=== PATIENT | female | born 2000 | race Caucasian/White ===

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

== ENCOUNTER 2021-04-29 09:45 | Outpatient (RCR) | payer OTHER, SELFPAY ==
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
[2021-04-29 10:04] VITALS: BP 115/78; PULSE 68
--- NOTE | 2021-04-29 10:10 | BH.SGPN.GN ---
Behaviors/Verbalizations/Mental Status: [] Eye contact is good. Motor activity is appropriate. Appearance is disheveled. Speech is Appropriate. Mood is depressed. Affect is flat. Thoughts are linear and logical. No evidence of psychosis. Client Response/Progress/Benefit: [] Pt was an active participant in group discussion and activity. Attentive during psychoeducation. Pt participated in interactive group discussion in which group defined fixed mindset and provided insight on how a fixed mindset could impact mental health and result in; being closed to new possibilities, focusing only on how things are unfair, could lead to helplessness, could lead to feelings of not being in control, could cause one to feel like a failure, and could cause one to ignore any success. Interacted and worked well with peers in small group. Fixed mindset thoughts that were overheard during activity included; This won't work, this didn't work before, I don't think this matters, Its hard. I'm nervous, this sucks, this is impossible, I'm not good at this, we will fail. Benefited from increased awareness on the role of fixed mindset on mental health. Will continue in IOP to maintain safety, stabilize mood, and prevent decompensation. Narrative Note: []
--- NOTE | 2021-04-29 11:10 | BH.SGPN.GN ---
Behaviors/Verbalizations/Mental Status: []Client alert and oriented, casually dressed and groomed. Eye contact good. Motor activity appropriate. Speech within normal limits. Affect constricted, mood depressed. Thoughts linear, logical, no signs of hallucinations or delusions. Client Response/Progress/Benefit: []Client engaged during activity and discussion AEB remaining attentive, providing increased input, and taking notes throughout. Client worked in small group to apply skills learned to reframe own personal fixed thoughts. Appeared to benefit from suggestions provided by peers as client indicated struggling to reframe thoughts identified. Reframed personal fixed thought of ?I?ll never be happy again? with growth mindset thought of ?I can struggle and still enjoy myself at times?. Client also picked a strategy from the list of suggestions to develop a growth mindset. Benefitted from discussing benefits of growth mindset and brainstorming strategies for prompting growth-mindset. First day of IOP tx. Will continue IOP tx prevent decompensation, gain healthy coping skills to manage depression, and reduce use of unhealthy coping skills. Narrative Note: []
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
--- NOTE | 2021-04-29 13:10 | BH.DR.ITP ---
Initial Treatment Plan Patient Information Visit Information: ADMISSION DATE: EXPECTED LOS: 4-6 weeks Problems/Symptoms Problem #1:: Mood instability Symptom:: Sadness, anhedonia, passive suicidal ideation, decreased concentration, apathy, hopelessness, worthlessness, guilt Problem #2:: Anxiety Symptom:: Worry, rumination
--- NOTE | 2021-04-30 09:08 | BH.SGPN.GN ---
Behaviors/Verbalizations/Mental Status: []Client alert and oriented, casually dressed and groomed. Eye contact fair to good. Motor activity appropriate. Speech within normal limits. Affect constricted, mood anxious and depressed. Thoughts linear, logical, no signs of hallucinations or delusions. Reviewed client?s symptom tracker, denies any suicidal ideation, plan, or intent as of 04/30/21. Future oriented Client Response/Progress/Benefit: []Client responded well to session, new to IOP treatment and indicated not having much to share. Attentive throughout. Client reports feeling stale this morning which she went on to describe as being dissatisfied and empty. Noted struggling to enjoy activities she previously enjoyed and feels numb. Client did well however to identify two activities she has found to be enjoyable which included a Russian class she is taking, as well as cooking. Discussed a win she has achieved as getting classes scheduled to return to school next semester as she is currently taking the semester off. Appeared too benefit from the supportive group environment. Continued IOP tx recommended to improve application of coping and self-care skills, continue to improve mood stability, and prevent decompensation. Narrative Note: []
--- NOTE | 2021-04-30 10:10 | BH.SGPN.GN ---
Behaviors/Verbalizations/Mental Status: [] Eye contact is good. Motor activity is appropriate. Appearance is disheveled. Speech is Appropriate. Mood is depressed. Affect is flat. Thoughts are linear and logical. No evidence of psychosis. Client Response/Progress/Benefit: [] Pt was an active participant in group activity. Attentive during psychoeducation. Participated in interactive discussion on celebrities who overcame failures to decrease stigma associated with failure. Group then worked together to identify the impact of FOF which can lead to; feeling as if they are not enough, can cause apprehension about trying new things, can lead to staying in toxic and unhealthy situations, self-sabotage, keep one stuck, and prolonged suffering. Pt also participated in and provided insight on what causes or leads to FOF which included; expectations, family dynamics, the environment, status, and our view of ourself. Benefited from increased awareness of the role of FOF on mental health and decision-making. Will continue in IOP to maintain safety, increase healthy coping, and improve functioning. Narrative Note: []
--- NOTE | 2021-04-30 11:15 | BH.SGPN.GN ---
Behaviors/Verbalizations/Mental Status: []Client alert and oriented, casually dressed and groomed. Eye contact fair. Motor activity appropriate. Speech within normal limits. Affect constricted, mood depressed. Thoughts linear, logical, no signs of hallucinations or delusions. Client Response/Progress/Benefit: []Client responded well to session, engaged in the experiential activity and attentive throughout group processing. Client completed the fear of failure worksheet and reported that fear of failure has kept client from ?doing art and getting better?. Client able to identify thoughts and behaviors that reinforce personal fear of failure which included: avoidance, remembering past failures, and rigid expectations. Client attentive during discussion of the different strategies to help overcome fear of failure. Identified wanting to work on overcoming avoidance by working on a small art project. Appeared to benefit from gaining self-awareness and learning strategies to overcome fear of failure. Client will continue IOP tx to prevent decompensation, reduce the use of unhealthy coping skills, and improve overall functioning. Narrative Note: []
== END 2021-05-03 23:59 ==
LOC: BHIOP 09:45
PROVIDERS: PCP Pediatrics; Referring Provider Psychiatry & Neurology Psychiatry; Visit Provider Psychiatry & Neurology Psychiatry
DX: F31.9 Bipolar disorder, unspecified (principal); F12.90 Cannabis use, unspecified, uncomplicated; Z79.899 Other long term (current) drug therapy
CPT/HCPCS: S9480; 90853

== ENCOUNTER 2021-05-04 09:00 | Outpatient (RCR) | payer OTHER, SELFPAY ==
[2021-05-04 00:35] VITALS: BP 115/78; PULSE 68
--- NOTE | 2021-05-04 09:00 | BH.SGPN.GN ---
Behaviors/Verbalizations/Mental Status: []Eye contact is tearful. Motor activity is appropriate. Appearance is casual. Speech is appropriate. Mood is depressed. Affect is congruent. Thoughts are linear and logical. No evidence of psychosis. Reviewed daily symptom tracker sheet with no reports of suicidal ideations, plan, or intent. Client Response/Progress/Benefit: [] Client was engaged throughout group session. Client reported her emotion of the day as ?dissatisfied?, and tearfully discussed struggling with abstaining from smoking marijuana. Client appeared to benefit from group discussion normalizing feeling and suggestions provided. Client discussed attending part of a marijuana anonymous meeting, and going to work once over the weekend as mental health wins. Progress noted AEB client report taking steps to maintain abstinent from marijuana, client continues to endorse a depressing mood and poor functioning. Client will continue IOP treatment to prevent decompensation and gain healthy coping skills to improve functioning. Narrative Note: []
--- NOTE | 2021-05-04 10:10 | BH.SGPN.GN ---
Behaviors/Verbalizations/Mental Status: []Client alert and oriented, casually dressed and groomed. Eye contact good. Motor activity appropriate. Speech within normal limits. Affect constricted, mood dysthymic. Thoughts linear, logical, no signs of hallucinations or delusions. Client Response/Progress/Benefit: [] Client engaged in session AEB taking notes, contributing to discussion, and providing examples throughout. Client assisted group with identifying benefits of setting boundaries such as improved relationships, reduced anxiety, increased sense of self-respect, and feeling validated. Listened during psychoeducation on different types of boundaries. Client stated struggles with setting time boundaries for self, often distracts self and loses time. Client seemed to benefit from increased awareness of how boundaries impact mental health and the different types of boundaries there are. Will continue IOP tx to increase coping skills, challenge negative thoughts, and prevent decompensation.
--- NOTE | 2021-05-04 14:06 | BH.MDN ---
Multi-Disciplinary Note - Note 30-min Individual Time Started:: 11:25 Date: 05/04/21 Purpose of session/treatment goals addressed:: To gather information on client's current stressors, symptoms, triggers, and tx goals. Another goal was to build rapport. Eye Contact:: Good Motor Activity:: Appropriate Appearance:: Casual Speech:: Appropriate Mood:: Depressed Affect:: Congruent - tearful Thoughts:: Linear, No evidence of hallucinations/delusions noted Staff Interventions:: psychoeducation on: - marijuana use and addiction, rapport building, strengths perspective, treatment planning, goal setting Client Response:: Pt responded well to session, open to meeting with therapist. Pt updated therapist of life stressors, symptoms, and substance use since previous [facility] admission. Pt shared that as soon as she left [facility], pt started smoking marijuana heavily. Pt stated she was using a pen to smoke dabs and was doing this daily. Pt reported she did not realize it was a problem until she came home and did not have access to marijuana. Pt explained how she had a manic episode over the summer after she stopped smoking. Pt reports since then she has had another relapse, but is currently sober. Pt became tearful and shared that she has not felt stewart since quitting and she worries that she will never feel stewart again. Pt stated she is worried about returning to school because her close friends smoke and marijuana is very easily accessible. Pt shared her parents also want to drug test pt when she returns to school which I know I need, but it makes me really sad. Pt receptive to discussion of addiction and how this impacts pleasure in the brain. Pt also receptive to discussion of family sessions, should pt ever want to have one with her parents. Pt's tx goals are to learn how to cope with depression and anxiety without marijuana. Pt also wants to learn how to manage cravings and gain healthy supports. Pt has been attending Marijuana Anonymous and her goal is to ask someone to be her sponsor this week. Risks/Concerns:: Pt denied any current suicidal ideations, plan, or intent as of 05/04/21. Pt admits to passive suicidal ideations within the past month. Protective factors and parents administer pt's medications. No access to weapons. Progress Toward Goals/Plan:: Pt started IOP last week and so far pt has been responding well to treatment. Pt is quiet in the group setting, but takes notes and appears attentive. Pt currently presenting with a depressed mood, crying spells, anhedonia, lack of motivation, negative thinking patterns, and isolative behaviors. Pt is newly sober from marijuana and pt reports she has been struggling with maintaining sobriety. Pt has been having urges to smoke daily and reports she has not been experiencing stewart since she stopped smoking. Pt will continue IOP tx to prevent decompensation, gain healthy coping skills to replace smoking, and improve functioning. Time Stopped:: 12:00
--- NOTE | 2021-05-04 14:48 | BH.MTP_ITS ---
Master Treatment Plan - Patient Information Program Physician:: Dr. Fernandes Primary Therapist:: Claudette ROMO - Psychiatric Diagnoses Psychiatric Diagnoses:: Rule out Bipolar disorder, NOS (F 32.9); Rule out mood disorder with psychosis secondary to substance use; Rule out bipolar 1 disorder as diagnosed during her hospital admission in March 2021; Marijuana use disorder; History of Adderall abuse Diagnosis Code(s):: F 32.9 - Estimated LOS Estimated LOS (in weeks):: 6 Problem/Goal #1 - Problem/Goal #1 Stated Goal:: Client will decrease depressive symptoms, use of unhealthy coping skills, ahedonia, and passive wishes due to major depression disorder. Description of Barriers: Client is away from her supports at school which is a protective factor to prevent use, but also triggers depression and loneliness. Client continues to have cravings to use marijuana. Client worries about relapsing and misses smoking even though she knows there are numerous consequences. Client worries about her ability to function at school and maintain sobriety. Functional Impact: Client is a 21-year-old female with a history of MDD, cannabis use disorder, and rule out bipolar NOS. Client was referred to [facility] by her mother due to worsening mental health symptoms and recent hospitalization within the last year. Client participated in [employer] from 07/14/20-07/21/20 and when she returned back to college, client began decompensating. At admission, client presents with a depressed mood, increase sleep, lack of energy, anhedonia, apathy, and loss of appetite with a 20lbs weight loss. Client denies any current SI, but in March 2021, client was admitted due to suicidal ideations with a plan. Client had a manic episode over the summer for 7-10 days and during that time client had pressured speech, lack of sleep, flight of ideas, excessive posting online, and paranoia. Client also had symptoms of psychosis with delusions for one day, but denies any since. Client had been using marijuana heavily (dabs with 80-90% THC) daily until she moved home from school. Unsure if dayday is secondary to marijuana use. Client's symptoms are impacting her ability to function at home, at school, and socially. Goal Relevant Strengths/Supports: Client has family support, outpatient counseling, and is motivated to improve so she can return to school. - Objectives Objective #1 Stated Objective: Client will learn and utilize 2-3 healthy coping strategies to better manage depressive symptoms as shown by reduced DSM-5 scores. Interventions: Through group and individual sessions, therapist will help client identify triggers and warning signs of depression. Therapist will teach client various coping skills to manage her symptoms and give client tangible resources to use to regulate emotions. Therapist will use cognitive restructuring techniques and help client gain awareness of negative thoughts that reinforce depressive cycles and help client reframe these thoughts. Discharge Criteria: Client will have met this goal when she can report learning and using at least 2 coping skills to manage depressive symptoms and show a reduction in DSM-5 symptoms. Target Date: 06/10/21 Review Date: 05/27/21 Status: open Objective #2 Stated Objective: Client will identify 2 triggers and 2 coping skills to use when client experiences mood instability and has increased urges to engage in unhealthy coping skills. Interventions: Through individual and group counseling client will be provided with education on healthy coping skills to manage mood symptoms, impulse, and crisis behaviors. Therapist will provide information on healthy alternatives to smoking or using substances. Therapist will also engage client to use self- compassion while working to change behaviors. Discharge Criteria: Client will have accomplished this goal when client can identify at least 2 triggers and 2 coping skills to increase mood stability and reduce unhealthy coping skills. Target Date: 06/10/21 Review Date: 05/27/21 Status: open Problem/Goal #2 - Problem/Goal #2 Stated Goal:: Client will reduce anxiety symptoms while increasing ability to function on daily basis. Description of Barriers: Client is away from her supports at school which is a protective factor to prevent use, but also triggers depression and loneliness. Client continues to have cravings to use marijuana. Client worries about relapsing and misses smoking even though she knows there are numerous consequences. Client worries about her ability to function at school and maintain sobriety. Functional Impact: Client is a 21-year-old female with a history of MDD, cannabis use disorder, and rule out bipolar NOS. Client was referred to [facility] by her mother due to worsening mental health symptoms and recent hospitalization within the last year. Client participated in [employer] from 07/14/20-07/21/20 and when she returned back to college, client began decompensating. At admission, client presents with a depressed mood, increase sleep, lack of energy, anhedonia, apathy, and loss of appetite with a 20lbs weight loss. Client denies any current SI, but in March 2021, client was admitted due to suicidal ideations with a plan. Client had a manic episode over the summer for 7-10 days and during that time client had pressured speech, lack of sleep, flight of ideas, excessive posting online, and paranoia. Client also had symptoms of psychosis with del usions for one day, but denies any since. Client had been using marijuana heavily (dabs with 80-90% THC) daily until she moved home from school. Unsure if dayday is secondary to marijuana use. Client's symptoms are impacting her ability to function at home, at school, and socially. Goal Relevant Strengths/Supports: Client has family support, outpatient counseling, and is motivated to improve so she can return to school. - Objectives Objective #1 Stated Objective: Client will identify 2-3 anxiety triggers and 2 coping skills to use when feeling anxious to manage anxiety as shown by decreasing her DSM-5 scores for anxiety. Interventions: Therapist will provide education on anxiety, avoidance behaviors, and maintenance cycles. Therapist will help client explore personal symptoms and warning signs of anxiety. Therapist will teach client coping skills to improve emotional regulation, mindfulness, and distress tolerance to help client cope with anxiety in the moment. Discharge Criteria: Client will have accomplished this goal when she can identify at least 2 triggers and report using 2 coping skills to manage anxiety. Additionally, client will have accomplished this goal when her DSM-5 scores show a reduction for anxiety. Target Date: 06/10/21 Review Date: 05/27/21 Status: open Objective #2 Stated Objective: Client will identify 2-3 cognitive distortions that lead to rumination and learn 2-3 ways to manage these thoughts to better manage anxiety Interventions: Therapist will provide education on the most common cognitive distortions and teach client the connection between thoughts, emotions, and feelings. Therapist will assist client in identifying, challenging, and replacing dysfunctional thoughts with positive, more realistic thoughts. Therapist will use CBT and DBT techniques to help client gain awareness of thinking errors and learn how to more effectively handle negative thoughts. Therapist will also use self-compassion to help client set more realistic expectations for herself. Discharge Criteria: Client will have accomplished this goal when can identify at least 2 cognitive distortions and at least 2 coping skills to manage negative thoughts. Target Date: 06/10/21 Review Date: 05/27/21 Status: open
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
--- NOTE | 2021-05-07 09:05 | BH.SGPN.GN ---
Behaviors/Verbalizations/Mental Status: [] Eye contact is good. Motor activity is appropriate. Appearance is disheveled. Speech is Appropriate. Mood is depressed. Affect is flat. Thoughts are linear and logical. No evidence of psychosis. Reviewed daily check in sheet and no reports of suicidal ideations or intent. Client Response/Progress/Benefit: [] Pt participated when prompted. Attentive. Emotion for today is anxious. Shared with the group that she has limited energy and motivation. I have enough to make it to IOP and work and nothing else. Reports that when at home she isolates and watches [employer] videos feeling like that is all she is capable of. She is unsure if she will be ready to return to college in July and her parents have been been concerned. Unsure if she can manage the stressors of school. She did go on a walk and complete some other responsibilities however again feels drained and depressed. Group provided feedback and suggestions to slowly ease back into more activities. Recommended 5-10 minutes of a chore or reading. Feedback was beneficial. No progress noted. Will continue in [facility] to maintain safety, increase healthy coping, and improve functioning. Narrative Note: []
--- NOTE | 2021-05-07 10:11 | BH.SGPN.GN ---
Behaviors/Verbalizations/Mental Status: []Client alert and oriented, casually dressed and groomed. Eye contact good. Motor activity appropriate. Speech within normal limits. Affect constricted, mood depressed and anxious. Thoughts linear, logical, no signs of hallucinations or delusions. Client Response/Progress/Benefit: []Pt was a mostly passive participant in group discussion; however, did well in taking notes and providing some limited input throughout. Attentive during psychoeducation on communication styles. Correctly identified assertive and passive communication styles. Pt struggled to provide personal reflection or contribute much to discussion however did appear to connect with topic discussed AEB nodding throughout. Continued difficulties in engagement may hinder overall treatment progress. Benefited from increased awareness of different communication barriers, styles, and the importance of communicating effectively to improve mental wellness. Pt is recommended continued IOP tx to further improve engagement, increase utilization of healthy coping skills, and maintain mood stability. Narrative Note: []
--- NOTE | 2021-05-07 11:10 | BH.SGPN.GN ---
Behaviors/Verbalizations/Mental Status: []Client alert and oriented, casually dressed and appropriately groomed. Eye contact good. Motor activity appropriate. Speech WNL. Affect congruent, mood euthymic. Thoughts linear, logical, no signs of hallucinations or delusions. Client Response/Progress/Benefit: []Client responded well to session AEB client listening attentively to others and providing input during group discussion on the pay offs and costs of the different communication styles. Client stated she is a mostly assertive communicator which has benefits of being taken more seriously by others. Client reported when she has difficulty with emotion regulation she will be more aggressive with her communication. Attentive during psychoeducation on interpersonal DBT skill MILDRED and client selected a communication skill to practice. Client selected the skill of a describing because she tends to jump to expressing herself which can make others confused. Client seemed to benefit from increasing awareness of healthy strategies to improve communication. Will continue IOP tx to maintain sobriety, continue use of healthy coping and prevent decompensation.
--- NOTE | 2021-05-11 09:05 | BH.SGPN.GN ---
Behaviors/Verbalizations/Mental Status: [] Eye contact is good. Motor activity is appropriate. Appearance is disheveled. Speech is Appropriate. Mood is euthymic. Affect is full. Thoughts are linear and logical. No evidence of psychosis. Reviewed daily check in sheet and no reports of suicidal thoughts. Client Response/Progress/Benefit: [] Pt participated at times during group discussion. Attentive. Daily symptom tracker notes 07/08 for depression and anxiety. Emotion for today is optimistic. States First day in a long time that I'm in a good mood. Reports increased energy and motivation. I had fun over the weekend with my friend. She also watched Anime which she had not done in several months as it was a trigger for use. Reports that she made in through and did not smoke which increased her confidence. I'm learning to have fun without the use of weed. She is concerned regarding triggers to use when she returns to college. Progress noted per pt report. Benefited from group support, encouragment, and feedback. Will continue in IOP to maintain safety, increase healthy coping, and improve functioning. Narrative Note: []
--- NOTE | 2021-05-11 10:13 | BH.SGPN.GN ---
Behaviors/Verbalizations/Mental Status: []Client alert and oriented, casually dressed and groomed. Eye contact good. Motor activity appropriate. Speech within normal limits. Affect congruent, mood anxious, euthymic. Thoughts linear, logical, no signs of hallucinations or delusions. Client Response/Progress/Benefit: []Client receptive to session, though remaining a mostly passive participant throughout. Taking notes and attentive as the group brainstormed the positive and negative aspects of stress on physical and mental health. Group did well to identify the benefits of stress as well as the impact of distress on performance and mental health. Client identified their personal top stressors as: mental health, physical health, and desire to use marijuana. Client reports when the stress overflows client reacts with ?freaking out over the small things?, rage, isolation, and backing out of commitments. Client seemed to benefit from increased awareness of current stressors and impact stress has on mental health. Recommended to continue IOP tx to promote consistent use of healthy coping, improve self-care, and continue to promote communication with supports. Narrative Note: []
--- NOTE | 2021-05-11 11:15 | BH.SGPN.GN ---
Behaviors/Verbalizations/Mental Status: []Client alert and oriented, casually dressed and groomed. Eye contact fair. Motor activity appropriate. Speech within normal limits. Affect congruent, mood euthymic. Thoughts linear, logical, no signs of hallucinations or delusions. Client Response/Progress/Benefit: []Client engaged in session AEB listening attentively to others and providing input throughout discussions. Client was an active participant in challenge activity. Client remained attentive during discussion about the 4 A's of managing stress and expressed connecting with the various benefits of each. Client stated for her stressor of desire to use she wants to adapt new ways of thinking to manage this stressor. Client reported staying sober will significantly decrease stress level. Client seemed to benefit from increased awareness of the impact stress has on mental health and increasing repertoire of stress management strategies. Will continue IOP tx to prevent decompensation, continue to promote thought challenging, and healthy coping skills. Narrative Note: []
--- NOTE | 2021-05-14 09:00 | BH.SGPN.GN ---
Behaviors/Verbalizations/Mental Status: []Client alert and oriented, neatly dressed and groomed. Eye contact good. Motor activity appropriate. Speech within normal limits. Affect congruent-tearful, mood anxious. Thoughts linear, logical, no signs of hallucinations or delusions. Reviewed client?s symptom tracker, no risk for suicidal ideation, plan, or intent as of 05/14/21 Client Response/Progress/Benefit: []Client responded well to session, providing emotional support to peers. Client reports feeling nervous this morning about going to work this afternoon. Client became tearful and shared that she is also craving marijuana and she misses being high. The group offered client emotional support and discussed coping skills client can use to manage cravings. Client stated she does feel a little better this week as client has been using more self-care. Client scheduled an appointment to get her hair colored and stated which if you know me you know I'm struggling if I don't have pink hair. Client has also been going for walks and watching shows that she used to enjoy. Appeared to benefit from reflecting on application of self-care. Will continue IOP tx to reduce depressive symptoms, maintain sobriety, and increase emotional regulation skills. Narrative Note: []
--- NOTE | 2021-05-14 10:10 | BH.SGPN.GN ---
Behaviors/Verbalizations/Mental Status: [] Eye contact is good. Motor activity is appropriate. Appearance is casual. Speech is Appropriate. Mood is euthymic. Affect is congruent. Thoughts are linear and logical. No evidence of psychosis. Client Response/Progress/Benefit: [] Pt was an active participant in group discussion and activity. Attentive during psychoeducation. Provided appropriate feedback. Group had an interactive discussion on defining pitfalls in the context of mental health. Group agreed with definition of events that impact progress or things that get you off track. Pt along with peers identified common mental health pitfalls which included; past experiences, current/past environments, poor communication, anxiety, any type of conflict, and feeling discomfort. Pt was able to identify the pitfalls and challenges that occurred during the experiential activity and worked with peers to identify strategies to overcome pitfalls. Able to make parallels between activity and ways to identify strategies to overcome pitfalls in real-life situations. Benefited from increased awareness of identifying and developing strategies to overcome pitfalls in mental health. Pt will continue in IOP to maintain safety, increase healthy coping, and prevent decompensation. Narrative Note: []
--- NOTE | 2021-05-14 14:13 | BH.MDN_ITS ---
Multi-Disciplinary Note - Note 45-min Individual Time Started:: 11:15 Date: 05/14/21 Purpose of session/treatment goals addressed:: To address current stressors, triggers, and symptoms. To discuss substance use related to mental health and identify relapse prevention supports/strategies. Eye Contact:: Good Motor Activity:: Appropriate Appearance:: Casual Speech:: Appropriate Mood:: Anxious, Depressed Affect:: Congruent - tearful Thoughts:: Linear, Logical, No evidence of hallucinations/delusions noted Staff Interventions:: motivational interviewing, psychoeducation on: - substance use, relapse prevention, and risk., mindfulness skills, strengths perspective, goal setting, other - relapse prevention Client Response:: Client responded well to session, open to meeting with therapist. Client reports her mood has improved since last week. Client is slowly starting to find enjoyment in some of her old interests. Client also has been engaging in more self-care and getting more exercise. Client reports feeling anxious about work today and was receptive to discussing coping skills she can use while working. 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 Client's biggest stressor right now is maintaining sobriety when she returns to college in the spring. Client reports her parents want to drug test her each week which client acknowledges will hold her accountable, but client shared it also makes her want to relapse. Client shared she has been thinking about how she can cheat the drug test and client became tearful. Client stated she misses smoking and she worries about being accepted at school as all of client's friends smoke as well. Discussed alternatives to smoking as well as consequences. Client identified consequences such as strained relationship with her parents, risk of worsening mental health symptoms, financial stress, and not being to afford her other interests. Client acknowledges that finding the reason she wants to stay sober will be the biggest protective factor for preventing relapse. Client will complete her relapse prevention reflection for homework. Risks/Concerns:: Denies any suicidal ideations, plan, or intent as of 05/14/21. Denies any homicidal ideations. Progress Toward Goals/Plan:: Client is responding well to IOP tx AEB her consistent attendance and engagement in individual sessions. Client reports her mood has improved this week, but she still feels depressed. Client's enjoyment in doing things is returning, but she still misses being high. Client reports her urges to use have decreased, but she still has urges to smoke and becomes tearful talking about it. Client's biggest stressors are managing sobriety and returning to school. Will continue IOP tx to prevent decompensation, increase application of healthy coping skills, and improve overall functioning. Time Stopped:: 12:05
--- NOTE | 2021-05-15 09:05 | BH.SGPN.GN ---
Behaviors/Verbalizations/Mental Status: [] Eye contact is good. Motor activity is appropriate. Appearance is disheveled. Speech is Appropriate. Mood is depressed. Affect is flat. Thoughts are linear and logical. No evidence of psychosis. Reviewed daily check in sheet and no reports of suicidal ideations or intent. Client Response/Progress/Benefit: [] Pt participated at times during group discussions on the role of blame in mental health. Attentive. Daily symptom tracker notes 07/08 for depression and anxiety. Mental health wins include going to work yesterday and managing a trigger (stocked a product with a marijuana leaf). She reports that she understands the negative impact that marijuana has had on her mental health and shared how she ended up in a psychiatric unit due to smoking 2 months ago. She also believes the research indicating use can impact Bipolar however admits their is still part of her that wants to use. She is 2 months sober currently and she is proud of this. Progress noted per pt report. Benefited from group support, encouragement, and feedback. Will continue in IOP to maintain safety, increase healthy coping, and improve functioning. Narrative Note: []
--- NOTE | 2021-05-15 10:15 | BH.SGPN.GN ---
Behaviors/Verbalizations/Mental Status: []Client alert and oriented, neatly dressed and groomed. Eye contact good. Motor activity appropriate. Speech within normal limits-quiet. Affect congruent, mood anxious and euthymic. Thoughts linear, logical, no signs of hallucinations or delusions. Client Response/Progress/Benefit: []Pt frequently nodding during group discussions and attentive during psychoeducation. Took notes as group identified obstacles or potholes that hinder our ability to communicate in stressful situations. Group identified the following obstacles; shutting down, mind-reading, lashing out, and becoming defensive. Pt provided insight on how emotion and mood can impact effective communication. Pt took an active role during the activity and processed how she felt pressure to do well, but she worked through those emotions. Benefited from increased awareness on how our emotions impact our communication. Will continue in IOP to increase emotional regulation skills, maintain sobriety, and increase internal coping skills. Narrative Note: []
--- NOTE | 2021-05-20 09:19 | BH.COMM ---
Communication Note - Communication with Client Communication Note: Pt cancelled today due to fatigue related to procedure yesterday. She was schedule to meet with psychiatry which will have to be rescheduled till next week.
--- NOTE | 2021-05-21 09:09 | BH.SGPN.GN ---
Behaviors/Verbalizations/Mental Status: []Eye contact is good. Motor activity is appropriate. Appearance is casual. Speech is Appropriate. Mood is anxious. Affect is congruent. Thoughts are linear and logical. No evidence of psychosis. Reviewed daily check in sheet and no reports of suicidal ideations or intent. Client Response/Progress/Benefit: []Pt responded well to session AEB sharing thoughts and feelings and listening attentively to peers. Pt stated mental health positive as getting hair colored pink again. Pt stated when she lets her hair fade it is a sign she is not doing well. Pt reported additional positive is being sober from marijuana for two months. Pt reported her stressor is wanting to smoke everyday. Pt stated she has stayed sober because her parents drug test her. pt reported being able to see some benefits of sobriety but is worried she will find ways to be able to smoke once returns to college. Progress noted with pt reporting sobriety from marijuana and using skills more consistently. Pt to continue IOP to maintain gains, continue use of healthy coping and prevent decompensation. Narrative Note: []
--- NOTE | 2021-05-21 10:12 | BH.SGPN.GN ---
Behaviors/Verbalizations/Mental Status: []Client alert and oriented, neatly dressed and groomed. Eye contact good. Motor activity appropriate. Speech within normal limits. Affect congruent, mood euthymic. Thoughts linear, logical, no signs of hallucinations or delusions Client Response/Progress/Benefit: []Pt was an active participant in group discussion and activity. Attentive during psychoeducation on what it means to take action. Pt identified symptoms she wants to take gain control over which included self-sabotage, negative self-talk, avoidance, and substance use. Reports belief that if she could regain control over her tendency to avoid stressors, she would ?work more and participate more in life.? Increased insight into what could be holding pt back from mental wellness and the importance of taking action on symptoms and obstacles rather than avoiding or ignoring. Will continue in IOP to maintain sobriety, increase the use of healthy coping skills, and improve functioning. Narrative Note: []
--- NOTE | 2021-05-21 11:12 | BH.SGPN.GN ---
Behaviors/Verbalizations/Mental Status: []Client alert and oriented, neatly dressed and groomed. Eye contact good. Motor activity appropriate. Speech within normal limits. Affect congruent, mood euthymic. Thoughts linear, logical, no signs of hallucinations or delusions. Client Response/Progress/Benefit: []Client responded well to session, taking notes and participating in worksheet discussion. Client set a goal to gain control over substance use. Client plans to work on this by writing down her triggers for wanting to use for the next three days. Client reports she will need external support and client plans to reach out to a potential marijuana anonymous sponsor. Client plans to also work on this goal during individual sessions. Appeared to benefit from identifying a small goal to benefit mental health. Progress noted as client reports increased self-care this week. Will continue IOP tx to increase relapse prevention skills, improve mood stability, and improve functioning. Narrative Note: []
--- NOTE | 2021-05-21 14:06 | BH.MDN ---
Multi-Disciplinary Note - Note 30-min Individual Time Started:: 12:10 Date: 05/21/21 Purpose of session/treatment goals addressed:: To work on goal #1 of client's tx plan. Another goal was to identify additional supports to promote client's sobriety. Eye Contact:: Good Motor Activity:: Appropriate Appearance:: Neat Speech:: Appropriate Mood:: Euthymic Affect:: Congruent Thoughts:: Linear, Logical, No evidence of hallucinations/delusions noted Staff Interventions:: thought challenging, motivational interviewing, strengths perspective, goal setting, other - relapse prevention skills and planning. Client Response:: Client responded well to session, open to meeting with therapist. Client entered session with bright pink hair which client shared you know I'm not doing well if my hair isn't pink. Client recently got her hair done and she was wearing makeup today which is progress for client. Client stated she has been feeling better mentally and she has been able to do more things she used to enjoy. Client has been working on engaging in her old hobbies and interests without being high. Client shared it's not the same euphoria, but I still enjoy it. Client stated work went well last week and she also took steps to getting a sponsor to maintain sobriety from marijuana. Client was anxious about texting the sponsor, so client did this in session. Client continues to feel very anxious and sad about returning to school and not being able to smoke. Client reports she often has thoughts of how she can cheat her drug test. Client stated identifying the consequences of not smoking has been helpful. Client also willing to reach out to her best friend from school and ask this friend to help with client's sobriety. Client is worried she might lose this friend because this friend is a heavy marijuana user. Discussed the pros and cons of communicating needs and asking for support. Client shared she would rather know now if this friend will be healthy for client than wait until school starts to find out. Client will reach out to his friend for homework and communicate with her sponsor. Risks/Concerns:: Client denies any suicidal ideations, plan, or intent as of 05/21/21. Denies any homicidal ideations. Progress Toward Goals/Plan:: Client is responding well to IOP tx AEB her consistent attendance and engagement in individual sessions. Client continues to make progress towards tx goals and increasing self-care. Client?s affect and functioning are improved this week. Client still misses being high and reports increased triggers this week due to being in bed for most of the day yesterday. Client's biggest stressors are managing sobriety and returning to school. Will continue IOP tx to prevent decompensation, increase application of healthy coping skills, and increase relapse prevention skills Time Stopped:: 12:35
--- NOTE | 2021-05-26 13:41 | BH.MDN ---
Multi-Disciplinary Note - Note 45-min Individual Time Started:: 09:20 Date: 05/26/21 Purpose of session/treatment goals addressed:: To work on goal #1 of client's tx plan and to discuss current stage of change. Eye Contact:: Fair Motor Activity:: Restless Appearance:: Neat Speech:: Soft Mood:: Dysthymic Affect:: Congruent - tearful throughout session Thoughts:: Other - focused on urges to use., No evidence of hallucinations/delusions noted Staff Interventions:: thought challenging, motivational interviewing, psychoeducation on: - stages of change., mindfulness skills, strengths perspective, other - Relapse prevention skills Client Response:: Client responded well to session, open to meeting with therapist. Client was tearful throughout session and shared feeling weepy today because she is torn about maintaining sobriety. Client did follow through with her goal of talking to her new sponsor and talking to her best friend from college about client's worries of returning to school. Client shared her urges to use when she returns to college have grown. Client stated over the weekend she sold personal items to get money so she can buy fake pee to pass drug tests at school. Client reports she knows this is not healthy or a good choice, but she misses smoking very much. Client shared feeling worried that she will lose her social life and supports if she is sober at school. Client also misses the feeling of being high. Receptive to motivational interviewing and able to identify all the consequences of use and cheating her drug tests. Client reports despite knowing all the consequences, she still wants to use. Client identified her goals for the semester and reports belief that she can still accomplish those goals if she controls her smoking. Therapist provided psychoeducation on addiction and client understands how this impacts her brain, but she still believes she will have impulse control. Receptive to gentle thought challenging as well as strengths perspective. Discussed the stages of change and client reports belief she is in contemplation. Client does not know what will help her get past this stage at this time. However, she is willing to continue talking to her sponsor to figure out strategies to maintain sobriety. Client does not want to have a family session as client is not ready to address her worries and urges with her mother. Client identified healthy coping skills and supports she can use today including spending time with a friend tonight and doing art again. Client has a goal to draw a picture and bring it into IOP by Tuesday. Risks/Concerns:: Client denies any suicidal ideations, plan, or intent as of 05/26/21. Denies any homicidal ideations. Progress Toward Goals/Plan:: Per client's DSM-5 assessment, client is making progress towards her goals. Client's scores for depression have 63%, thoughts of hurting self has decreased by 100%, and anxiety has decreased by 29%. However, client reports today feeling weepy and torn about her urges to relapse and use marijuana again. Client continues to struggle with the barriers, consequences, and benefits of recovery. Client did find an MA sponsor and will talk with them on Tuesday. Client will continue IOP tx to prevent relapse, improve emotional regulation skills, and increase functioning. Time Stopped:: 10:00
--- NOTE | 2021-05-26 14:51 | BH.TPR ---
Treatment Plan Review Date of Admission:: 04/29/21 Date of Treatment Plan Review:: 05/26/21 Admitting Diagnoses:: Rule out Bipolar disorder, NOS (F 32.9); Rule out mood disorder with psychosis secondary to substance use; Rule out bipolar 1 disorder as diagnosed during her hospital admission in March 2021; Marijuana use disorder; History of Adderall abuse Current Diagnoses:: Rule out Bipolar disorder, NOS (F 32.9); Rule out mood disorder with psychosis secondary to substance use; Rule out bipolar 1 disorder as diagnosed during her hospital admission in March 2021; Marijuana use disorder; History of Adderall abuse Patient's Response to Treatment:: Client?s attendance has been variable due to several cancellations because of illness. When client does attend, she takes notes and connects with peers. Client is often quiet during groups sessions, but she will share her perspective and personal examples when prompted. In individual sessions, client is receptive and responds well to gentle thought challenging and homework. Client's DSM-5 scores have decreased by 57% overall since admission. Client continues to be sober from marijuana use, but she admits to daily urges to smoke. Status of Current Problems and Symptoms: Client's symptoms and problems are ongoing, but resolving in many areas. Client's mood is low today, but overall, she reports functioning and mood have been better. Client?s biggest stressor continues to be her ambivalence about maintaining sobriety. Client worries how returning to college and maintaining friendships will look if she is sober. Client also worries about her relationship with her mother due to her ambivalence. Client reports ongoing anxiety with avoidance, negative thinking, and crying spells. Problem #1 Problem Name:: Depression, unhealthy coping skills, anhedonia Status of Goals:: Objective 1- complete, but ongoing work encouraged. Client?s DSM-5 scores for depression have decreased by 63% since admission. Client also denies any passive suicidal ideations since IOP. Client reports utilizing opposite action more and engaging in hobbies she used to enjoy. However, not being able to smoke continues to cause distress for client which leads to crying and a depressed mood some days. Objective 2- in progress. Client remains sober from marijuana and now has a sponsor. Client has identified triggers for use, alternative coping skills, and consequences of relapse. Client can benefit from continuing with this goal to prepare for returning to school. Team Recommendations:: Treatment team recommends client continue working on relapse prevention skills and plan. Treatment tx also recommends that client increase sober supports at home and at school. Problem #2 Problem Name:: Anxiety, ruminations, and avoidance Status of Goals:: Objective 1- complete with ongoing work encouraged. Client?s DSM-5 scores for anxiety have decreased by 29% since admission. Client reports using more opposite action and communication, especially at work. Client has also been using more self-care to manage mental health symptoms. Client feels anxious about returning to school in the spring. Objective 2- not complete. Due to client wanting to focus mostly on maintaining sobriety and manage depression, this objective has not been addressed in individual sessions. However, client has learned about the various cognitive distortions during group sessions. Team Recommendations:: Treatment team recommends that client continue to maintain sobriety and to develop a plan with therapist to help client transition back to school to reduce anxiety.
--- NOTE | 2021-05-29 10:31 | BH.MDN ---
Multi-Disciplinary Note - Note 60-min Individual Time Started:: 09:15 Date: 05/29/21 Purpose of session/treatment goals addressed:: To work on a relapse prevention plan to support client for when she returns to college. Symptoms/Behavior:: This session was not billed Eye Contact:: Good Motor Activity:: Appropriate Appearance:: Casual Speech:: Appropriate Mood:: Euthymic, Anxious Affect:: Congruent Thoughts:: Linear, Logical, No evidence of hallucinations/delusions noted Staff Interventions:: thought challenging, motivational interviewing - worked on relapse prevention, reviewed DSM-5, other - worked on relapse prevention plan Client Response:: Client responded well to session, open to meeting with therapist. Client reports overall she is feeling better. Client is somewhat nervous about work tonight, but she shared worked went well last week. Client willing to work on a relapse prevention plan for when she returns to school. Began with identifying different triggers including: internal, external, and sensory triggers. Client identified emotions, places, people, and visuals that increase the urge to smoke. Client also identified her no list or rigid rules she plans to have with herself. These included no going to class high, no waking up and smoking, no smoking flower, and no smoking in academic buildings. Client encouraged to work on this relapse prevention plan for homework and draw over the weekend. Client also receptive to establishing AoD counseling at school. Risks/Concerns:: Denies any suicidal ideations, plan, or intent as of 05/29/21. Denies any homicidal ideations. Progress Toward Goals/Plan:: No significant changes since session on 05/26/21. Client continues to report improvement in application of coping skills and her mood has overall been better. Client also states work has been going well. Client continues to worry about her ability to maintain sobriety when she returns to college. Client also admits to being ambivalent to maintaining sobriety. Will continue IOP tx to promote application of coping skills, increase relapse prevention skills, and identify aftercare plan. Time Stopped:: 10:15
--- NOTE | 2021-06-01 09:04 | BH.SGPN.GN ---
Behaviors/Verbalizations/Mental Status: [] Eye contact is good. Motor activity is appropriate. Appearance is casual. Speech is Appropriate. Mood is euthymic, anxious. Affect is congruent. Thoughts are linear and logical. No evidence of psychosis. Reviewed daily check in sheet and no reports of suicidal ideations or intent. Client Response/Progress/Benefit: [] Pt receptive of session, engaged and willing to share throughout. Reports emotion today as eager indicating that she is roud of her accomplishments over the weekend as she was able to workout several times, as well as get back into drawing. Discussed this as having a more positive impact on her overall mood. Shared that her primary stressor is deciding whether to quit marijuana or not. Discussed not wanting to but is torn as she knows this will damage her relationship with her parents. Receptive of group support and expressed taking steps to begin weighing the pros and cons of this decision which indicates progress. Pt recommended continued IOP treatment to further promote healthy distress tolerance skills, encourage communication with her supports, as well as prevent decompensation. Narrative Note: []
--- NOTE | 2021-06-01 10:10 | BH.SGPN.GN ---
Behaviors/Verbalizations/Mental Status: []Client alert and oriented, casually dressed and groomed. Eye contact fair. Motor activity appropriate. Speech within normal limits. Affect congruent, mood euthymic. Thoughts linear, logical, no signs of hallucinations or delusions. Client Response/Progress/Benefit: []Client responded well to group session AEB contributing to group and listening attentively to others. Client connected to the topic of making change and discussed how a person?s mental health status and environment affect their reaction to change. Client expressed that change makes them nervous. Client participated in the emotion pictionary activity, and was able to relate how each emotion could be experienced in relation to change. Client also participated in discussion regarding the stages of change and the feelings that accompany them. Client seemed to benefit from increasing awareness of stages of change and the range of emotions that come with making change. Progress noted in client?s increased contribution to group session. Will continue IOP treatment to increase depression management skills, improve self-compassion, and increase functioning. Narrative Note: []
--- NOTE | 2021-06-01 11:10 | BH.SGPN.GN ---
Behaviors/Verbalizations/Mental Status: []Client alert and oriented, neatly dressed and groomed. Eye contact good. Motor activity appropriate. Speech within normal limits. Affect congruent, mood euthymic. Thoughts linear, logical, no signs of hallucinations or delusions. Client Response/Progress/Benefit: [] Client responded well to session, attentive and contributing. Did well to process activity and work with group to relate the barriers and strategies used to overcome the barriers to managing change in own life. Client identified a change client would like to make as exercising daily by biking or walking. Client reports belief she is in the preparation and action stages as she is already working on this goal. Client shared exercising has given her more energy and made her feel better. Client plans to continue working on this goal each evening. Appeared to benefit from identifying a small goal to work towards. Client will continue IOP tx to maintain sobriety, improve overall functioning, and increase emotional regulation skills. Narrative Note: []
--- NOTE | 2021-06-02 09:05 | BH.SGPN.GN ---
Behaviors/Verbalizations/Mental Status: []Client alert and oriented, neatly dressed and groomed. Eye contact good. Motor activity appropriate. Speech within normal limits. Affect constricted, mood euthymic. Thoughts linear, logical, no signs of hallucinations or delusions. Reviewed client?s symptom tracker, no risk for suicidal ideation, plan, or intent as of 06/02/21 Client Response/Progress/Benefit: []Client responded well to session, attentive, but quiet. Client reports feeling neutral this morning. Client shared she exercised last night and met with her MA sponsor which went well. Client stated she felt accomplished after doing these things, but she also had a stressor last night with her mother which made client anxious about returning to school. Client continues to express mixed emotions about returning to college as client is excited, but also anxious and unsure about maintaining sobriety. Self-reports on the daily symptom tracker that her ability to function and mood have generally been better. Will continue IOP tx to maintain sobriety, increase emotional regulation skills, and prepare client to return to college. Narrative Note: []
== END 2021-06-02 23:59 ==
LOC: BHIOP 09:00
PROVIDERS: PCP Pediatrics; Referring Provider Psychiatry & Neurology Psychiatry; Visit Provider Psychiatry & Neurology Psychiatry
DX: F32.9 Major depressive disorder, single episode, unspecified (principal); F12.90 Cannabis use, unspecified, uncomplicated
CPT/HCPCS: S9480; 90832; 90834; 90853

== ENCOUNTER 2021-06-03 09:00 | Outpatient (RCR) | payer OTHER, SELFPAY ==
[2021-06-03 00:36] VITALS: BP 115/78; PULSE 68
--- NOTE | 2021-06-03 09:00 | BH.SGPN.GN ---
Behaviors/Verbalizations/Mental Status: [] Eye contact is good. Motor activity is appropriate. Appearance is disheveled. Speech is Appropriate. Mood is euthymic. Affect is full. Thoughts are linear and logical. No evidence of psychosis. Reviewed daily check in sheet and no reports of suicidal ideations or intent. Client Response/Progress/Benefit: [] Pt participated when prompted. Attentive. Emotion today is excited. She has plans to return to college for the weekend and is excited to see her friends. She continues to ruminate and worry about her eventual return to school and her urges to smoke weed. Despite all the negative consequences of past use she continues to contemplate using in moderation with her friends. She states Its hard not to use in college these days. Only has one friend who does not smoke. Progress noted in overall mental health however again contemplates using when she returns to college full-time. Benefited from group support, encouragement, and feedback regarding relapse prevention. Will continue in IOP to maintain gains and prevent decompensation. Narrative Note: []
--- NOTE | 2021-06-03 13:59 | BH.MDN_ITS ---
Multi-Disciplinary Note - Note 30-min Individual Time Started:: 10:27 Date: 06/03/21 Purpose of session/treatment goals addressed:: To address current stressors, barriers, and treatment goals for the remaining duration of IOP. Another goal was to provide client with options for aftercare. Eye Contact:: Good Motor Activity:: Appropriate Appearance:: Casual Speech:: Appropriate Mood:: Anxious Affect:: Congruent - tearful Thoughts:: Linear, Logical, No evidence of hallucinations/delusions noted Staff Interventions:: motivational interviewing, CBT techniques, discharge planning, goal setting, other - Gave client homework to track application of coping skills and their effectiveness. Client Response:: Client responded well to session, but reports plan to leave for the day after individual session. Discussed recent inconsistent attendance and client admits that she has been avoiding more recently. Client stated her plan is to come three full days next week as client understands she is not getting the full benefit of IOP when she leaves early. Client shared she no longer wants to focus on relapse prevention. Client became tearful and shared that she will likely use when she returns to school, despite knowing the cons equences. Client reports she feels bad for wanting to do this because she knows it will impact her relationship with her parents. Discussed additional consequences, but client appeared to minimize those and share well those aren't that bad or I'm not worried about that. Discussed the use of mental filter to justify behavior and use when addicted. Client met with her MA sponsor yesterday and reported it was helpful. Therapist encouraged client to continue utilizing this resource and gave client additional AoD resources for when client returns to school. Client wants to focus on anxiety management skills for the next two weeks of treatment. Discussed coping skills that can help manage anxiety including DDD, opposite action, and calming skills. Client was given a handout with different coping skills that also included a chart. Client will track her moods and the effectiveness of the coping skills used. Risks/Concerns:: Client denies any suicidal ideations, plan, or intent as of 06/03/21. Denies any homicidal ideations. There is a concern that client will relapse when she returns to college in the spring. Client is currently sober, but is highly considering use when she returns to school. Progress Toward Goals/Plan:: Client is making progress towards tx goals in many ways as client self-reports overall improved mood and functioning. Client has been more physically active and she reports her relationship with her parents has been better. Client shared her mom has observed that client is more alert, interactive, and present since being sober. However, client continues to struggle with urges to use marijuana, managing anxiety, and avoidance behaviors. Client's attendance has been less consistent lately and this concern was a ddressed during session. Client understand she needs to stay for the full day of IOP three days next week. Client will continue IOP tx to increase emotional regulation skills needed to help client transition back to college and prevent relapse.
--- NOTE | 2021-06-10 09:03 | BH.SGPN.GN ---
Behaviors/Verbalizations/Mental Status: []Client alert and oriented, neatly dressed and groomed. Eye contact good. Motor activity appropriate. Speech within normal limits. Affect congruent, mood euthymic and irritable. Thoughts linear, logical, no signs of hallucinations or delusions. Reviewed client?s symptom tracker, no risk for suicidal ideation, plan, or intent as of 06/10/21 Client Response/Progress/Benefit: C[]Client responded well to session, attentive and engaged. Client reports feeling artist representative this morning as client recently got to see her friends from college. Client went back to the college she is on leave from this weekend to visit friends and client shared she did well to avoid using marijuana. Client reported she was proud of herself because she had multiple opportunities to smoke, but she declined. Client shared she also reflected on personal growth and shared I realized that I don't think of killing myself as an option anymore. Client reports this is progress as in the past any stress triggered suicidal ideations. Appeared to benefit from reflecting on progress. Will continue IOP tx to promote mood stability and increase emotional regulation skills. Narrative Note: []
--- NOTE | 2021-06-10 15:39 | BH.MDN_ITS ---
Multi-Disciplinary Note - Note 45-min Individual Time Started:: 10:30 Date: 06/10/21 Purpose of session/treatment goals addressed:: The purpose of this session was to review client's progress and review strategies that will promote mood stability and gains made in [facility]. Another goal was to discuss discharge recommendations and process any current stressors. Eye Contact:: Good Motor Activity:: Appropriate Appearance:: Neat Speech:: Appropriate Mood:: Euthymic Affect:: Congruent Thoughts:: Linear, Logical, No evidence of hallucinations/delusions noted Staff Interventions:: thought challenging, motivational interviewing, psychoeducation on: - addiction and the brain, mindfulness skills, discharge planning, strengths perspective, reviewed DSM-5, goal setting, other - reviewed warning signs for dayday and relapse prevention plan. Client Response:: Client responded well to session, open to meeting with therapist. Client shared feeling ready to discharge from [facility] tomorrow as client has struggled with attendance and does not want to repeat any groups. Client feels she has made progress since starting [facility] and client reflected on her growth. Client able to recognize the benefits of sober living including: ability to manage emotion without substances, coping with boredom, finding enjoyment in activities without substances, and more stability in various areas. Client stated she plans to maintain a consistent sleep schedule, keep working, and have a structured schedule when she returns to school. Client reports that although she sees the benefits of being sober and knows the consequences of use, client shared she is likely to use again when she returns to school. Long discussion about this decision, addiction in the brain, relapse prevention, and boundaries. Client reports belief she has better self-control and knows her limits. Client willing to continue with outpatient counseling and talking with her MA sponsor. Client reviewed healthy coping skills including calming skills, self-care, and distress tolerance skills. Risks/Concerns:: client denies any SI, HI, or thoughts of as of 06/10/21. Progress Toward Goals/Plan:: Client has accomplished her treatment goals AEB her DSM-5 score reduction of 60% since admission and her self-report. Client self- reports overall improved mood, reduced severity of symptoms, improved functioning, and increased energy. Client reports increased ability to manage her emotions and has increased confidence. Client still has urges to smoke, but she has more awareness, skills, and supports to prevent relapse and maintain healthy living. Client will continue with outpatient counseling, medication management, and plans to participate in IOP aftercare. Time Stopped:: 11:10
--- NOTE | 2021-06-11 09:16 | BH.AFTERPLAN ---
Aftercare Plan - Demographics Treatment End Date:: 06/11/21 Psychiatrist:: Joana Fernandes Psychiatrist Office #:: [phone] [facility] Therapist:: Claudette James Therapist Phone #:: [phone] - Plan Details Progress/Aftercare Plan Details:: Maggi has made progress starting IOP as shown by her reduced symptoms, ability to maintain sobriety, and overall increased ability to manage emotions and stressors. When Maggi started IOP, Maggi was depressed, not enjoying any of her old hobbies/interests, and struggling with daily functioning. Maggi was isolating, had crying spells, and was feeling hopeless. Now, Maggi is actively using healthy coping skills, practicing self-care, challenging negative thoughts, and using the awareness she has gained to manage her emotions. Maggi was attentive during group sessions most of the time, however, there were issues with attendance. In individual sessions, Maggi was receptive to feedback, engaged, and mostly consistent with homework. Maggi?s DSM-5 scores overall decreased by 60%. Depression decreased by 75%, anger decreased by 33%, thoughts of actually hurting herself decreased by 100%, and anxiety decreased by 29%. Throughout IOP and at discharge, maggi denied any symptoms of dayday or psychosis and she maintained sobriety. Additionally, Maggi was involved with an MA sponsor at discharge which will support her ongoing recovery. Strategies for Success:: 1. This is a bad MOMENT not a bad day. Continue to challenge your perspective and see the positives in yourself and in situations. 2. Challenge negative self-talk using self-compassion and affirmations. 3. Continue to meet with your sponsor and remind yourself why you are choosing sobriety 4. Remember that it's okay to feel our emotions, but we don't have to LIVE in them. This includes boredom! Remember to use alternative coping skills when feeling uncomfortable emotions. 5. Self-care!! This means boundaries, sleep schedule, exercising, eating healthy, and engaging in your hobbies. 6. Get into a routine of asking yourself what do I need right now to help regulate emotions and use healthy coping skills. 7. Review your IOP binder and relapse prevention plan. 8. Opposite action to break unhealthy cycles. 9. DDD (delay, distract, decide) before engaging in unhealthy skills or giving into urges. 10. Remember your warning signs and triggers for depression, dayday, and substance use. 11. Don?t forget your rules for yourself AKA your ?no no? list. - Appointments Appointments/Referrals to Other Services:: 1. Dr. Saenz 07/01/21 for medication management. 2. IOP aftercare starting 06/18/21 from 2:00-3:30pm. 3. Continue with MA violette, en. 4. Options for counseling through [facility] or [facility]. - Medications Home Medications: Home Medications fluoxetine 20 mg PO DAILY 07/16/20 Control 1 tablet PO/SL DAILY 04/29/21 acetylcysteine BID 04/29/21 lurasidone [Latuda] 20 mg PO DAILY 04/29/21
--- NOTE | 2021-06-11 09:17 | BH.DS_ITS ---
Discharge Summary - Demographics Date of Admission:: 04/29/21 Discharge Date: 06/11/21 Presenting Problems at Admission:: Client is a 21-year-old female with a history of MDD, cannabis use disorder, and rule out bipolar NOS. Client was referred to [facility] by her mother due to worsening mental health symptoms and recent hospitalization within the last year. Client participated in [employer] from 07/14/20- 07/21/20 and when she returned back to college, client began decompensating. At admission, client presented with a depressed mood, increase sleep, lack of energy, anhedonia, apathy, and loss of appetite with a 20lbs weight loss. Client denied any current SI, but in March 2021, client was admitted due to suicidal ideations with a plan. Client had a manic episode over the summer for 7-10 days and during that time client had pressured speech, lack of sleep, flight of ideas, excessive posting online, and paranoia. Client also had symptoms of psychosis with delusions for one day, but denies any since. Client had been using marijuana heavily (dabs with 80-90% THC) daily until she moved home from school. Unsure if dayday is secondary to marijuana use. Client's symptoms were impacting her ability to function at home, at school, and socially. Discharge Diagnoses:: Rule out Bipolar disorder, NOS (F 32.9); Rule out mood disorder with psychosis secondary to substance use; Rule out bipolar 1 disorder as diagnosed during her hospital admission in March 2021; Marijuana use disorder; History of Adderall abuse Reason for Discharge:: Client has made progress towards her treatment goals AEB her reduction in DSM-5 symptom scores, self-report of increased ability to manage emotions and negative thoughts, and improved functioning. Client no longer meets criteria for IOP level of care and will transition to outpatient counseling and [facility] aftercare. - Treatment Progress During Treatment & Response: Client has made progress starting IOP as shown by her reduced symptoms, ability to maintain sobriety, and overall increased ability to manage emotions and stressors. When client started IOP, client was depressed, not enjoying any of her old hobbies/interests, and struggling with daily functioning. Client was isolating, had crying spells, and was feeling hopeless. Now, Client is actively using healthy coping skills, practicing self-care, challenging negative thoughts, and using the awareness she has gained to manage her emotions. Client was attentive during group sessions most of the time, however, there were issues with attendance. In individual sessions, Client was receptive to feedback and mostly consistent with homework. Client?s DSM-5 scores overall decreased by 60%. Depression decreased by 75%, anger decreased by 33%, thoughts of actually hurting herself decreased by 100%, and anxiety decreased by 29%. throughout IOP and at discharge, client denied any symptoms of dayday or psychosis. Additionally, client was involved with an [place] sponsor at discharge which will support her ongoing recovery. Issues Still to be Addressed:: Client can continue to benefit from ongoing counseling to reinforce healthy coping skills, maintain sobriety, and further increase self-awareness of mental health symptoms. Client can also continue to benefit from increasing healthy supports on campus and at home. There is a concern that client will relapse when she returns to school due to accessibility, increased use triggers, and peer influence. Client and therapist have worked on a recovery plan and talked in depth about the consequences of use and benefits of sobriety. Discharge Recommendations/Instructions:: Client is recommended to continue medication management through Dr. Saenz at [facility] and client's next appointment is 07/01/21. Client encouraged to continue virtually meeting with her [place] sponsor and has been given resources for recovery and sobriety at [facility]. Client will participate in IOP aftercare program until she returns to college. Client has options for outpatient counseling in [place] including counseling through [facility]. Client plants to wait and establish services at school until she returns in July. Client's mother is aware aftercare plan and is helping client get connected through the college. Discharge Handout: Complete Discharge Handout with client on aftercare options and continuity of care.
== END 2021-06-11 12:02 | disposition home or self-care (01) ==
LOC: BHIOP 09:00
PROVIDERS: PCP Pediatrics; Referring Provider Psychiatry & Neurology Psychiatry; Visit Provider Psychiatry & Neurology Psychiatry
DX: F32.9 Major depressive disorder, single episode, unspecified (principal); F12.90 Cannabis use, unspecified, uncomplicated
CPT/HCPCS: S9480; 90832; 90834; 90853

== ENCOUNTER 2021-07-02 09:00 | Outpatient (RCR) | payer OTHER, SELFPAY ==
--- NOTE | 2021-07-02 14:05 | BH.SGPN.GN ---
Behaviors/Verbalizations/Mental Status: []Client alert and oriented, casual dress, hygiene tended to. Eye contact good. Motor activity appropriate. Speech within normal limits. Affect congruent, mood anxious, euthymic. Thoughts linear, logical, no signs of hallucinations or delusions. Client Response/Progress/Benefit: []Client responded well to session, attentive and engaged throughout. Client reported feeling ?excited? today, discussing that she has been happy to be back at work and is looking forward to returning to school after the holiday break as well. Client discussed use of several coping skills in the past week, including positive self-talk, thought challenging, and healthy distractions. Shared looking forward to participating in the aftercare program until returning to school. Participated in discussion on making healthy choices and the barriers keeping clients from making healthy choices. Client attentive and contributing to discussion of strategies to improve healthy decision making. Shared wanting to be more consistent and willing to communicate with supports throughout the decision-making process. Appeared to benefit from reflecting on application of coping skills, identifying barriers, and discussing strategies to improve healthy decision-making skills. Narrative Note: []
--- NOTE | 2021-07-02 14:25 | BH.DS_ITS ---
Discharge Summary - Demographics Date of Admission:: 07/02/21 Discharge Date: 07/02/21 Presenting Problems at Admission:: Client discharged from IOP tx and transitioned to IOP aftercare to maintain gains client made in IOP. At admission to IOP aftercare, client?s mood and functioning had improved, Client had returned to work after IOP discharge and is scheduled to return to school at the start of the new semester, which was an ongoing stressor for client. At discharg e from IOP client was still experiencing mild anxiety and depression, pt was struggling at times with maintaining healthy boundaries and communication with family. Discharge Diagnoses:: Rule out Bipolar disorder, NOS (F 32.9); Rule out mood disorder with psychosis secondary to substance use; Rule out bipolar 1 disorder as diagnosed during her hospital admission in March 2021; Marijuana use disorder; History of Adderall abuse Reason for Discharge:: Client voluntarily discharged from IOP aftercare due to getting ready to start college [place] next [place]. Client reports she is functioning well and her mood has generally been better. Reports improved ability to cope with anxiety. - Treatment Progress During Treatment & Response: Limited progress as client was in IOP aftercare for one session and discharged before fully completing the program. Therefore, client did not complete the discharge DMS-5. Client reported the biggest progress she made in IOP and in aftercare was improving her ability to manage depression and anxiety, as well as develop healthier means of coping. Client reported improvements in consistent use of healthy coping skills throughout IOP tx, though continued to struggle in this area at times. Issues Still to be Addressed:: Client can continue to benefit from outpatient counseling to reinforce healthy coping skills, continue to work on boundary setting and healthy communication, substance use, and to further increase mood stability. Discharge Recommendations/Instructions:: Client is recommended to continue medication management through Dr. Saenz at [facility], last appointment was yesterday. Client encouraged to continue virtually meeting with her [place] sponsor and has been given resources for recovery and sobriety at [facility]. Client has options for outpatient counseling in [facility] including counseling through [facility]. Client plans to wait and establish services at school until she returns in July. Client's mother is aware aftercare plan and is helping client get connected through the college. Discharge Handout: Complete Discharge Handout with client on aftercare options and continuity of care.
== END 2021-07-03 23:59 ==
LOC: BHOG 09:00
PROVIDERS: PCP Pediatrics; Visit Provider Psychiatry & Neurology Psychiatry
DX: F32.9 Major depressive disorder, single episode, unspecified (principal); F12.90 Cannabis use, unspecified, uncomplicated
CPT/HCPCS: 90853

== ENCOUNTER 2021-07-08 09:00 | Outpatient (RCR) | payer OTHER, SELFPAY | END 2021-07-10 08:02 | disposition home or self-care (01) | LOC: BHOG 09:00 | PROVIDERS: PCP Pediatrics; Visit Provider Psychiatry & Neurology Psychiatry | DX: F32.9 Major depressive disorder, single episode, unspecified (principal); F12.90 Cannabis use, unspecified, uncomplicated ==